=== PATIENT | male | born 1965 | race Caucasian/White ===

== ENCOUNTER → 2020-01-10 | Outpatient (CLI) | payer BC, MEDICARE ==
--- NOTE | 2020-01-10 12:35 | RADIOLOGY REPORT (SQ) ---
EXAM DESCRIPTION: MRI CERVICAL SPINE WITHOUT IMAGES COMPLETED DATE/TIME: 01/10/2020 10:12 am REASON FOR STUDY: PAIN IN THORACIC SPINE (M54.6), CERVICAL RADICULOPATHY (M54.12) M54.6 PAIN IN THO RACIC SPINE M54.12 RADICULOPATHY, CERVICAL REGION COMPARISON: None. TECHNIQUE: Sagittal and Axial imaging includes T1, T2, STIR and gradient echo sequences. LIMITATIONS: Motion. FINDINGS: ALIGNMENT: Normal. VERTEBRAE: Intact. BONE MARROW: Normal. No marrow replacement or reactive changes. DISCS: Desiccation multiple levels. HARDWARE: None in the spine. CORD AND BASE OF BRAIN: Normal in size and signal intensity. SOFT TISSUES: No soft tissue masses. C1-C2: No significant spinal stenosis. C2-C3: Mild spinal stenosis due to disc bulge, uncovertebral arthropathy and ligament thickening. Mi ld neural foraminal narrowing bilaterally. C3-C4: Mild spinal stenosis due to disc bulge, uncovertebral arthropathy and ligament thickening. Mo derate neural foraminal narrowing bilaterally. C4-C5: Mild spinal stenosis. Moderate neural foraminal narrowing bilaterally. C5-C6: Mild spinal stenosis. Moderate neural foraminal narrowing bilaterally. C6-C7: Mild spinal stenosis. Moderate neural foraminal narrowing bilaterally. C7-T1: Mild spinal stenosis. Mild neural foraminal narrowing bilaterally. UPPER THORACIC: Incompletely imaged. No significant spinal stenosis or exit foraminal stenosis. OTHER: No other significant finding. IMPRESSION: Mild spinal stenosis multiple levels. Varying degrees of neural foraminal stenosis. TECHNICAL DOCUMENTATION: JOB ID: [id number] 2010 [employer]- All Rights Reserved Reading location - IP/workstation name: [email or web address]
== END ==
LOC: RAD 09:28
PROVIDERS: ATTEND Orthopaedic Surgery
DX: M50.121 Cervical disc disorder at C4-C5 level with radiculopathy (principal); M54.6 Pain in thoracic spine
CPT/HCPCS: 72141